=== PATIENT | male | born 1970 | race Caucasian/White ===

== ENCOUNTER → 2018-06-28 | Outpatient (CLI) | payer BC ==
--- NOTE | 2018-06-28 14:02 | KCIC ---
Pre-MRI orbits HISTORY: Previous metal work. Screening for MRI. FINDINGS: There is no evidence of metallic foreign body. Electronically signed by: Melquiades Cason MD (06/28/2018 1:58 PM) [id number]
--- NOTE | 2018-06-28 15:51 | KCIC ---
MR of the left elbow region HISTORY: Left elbow pain, infected bursa was removed on April 12, 2018, continued drainage at the surgical site posteriorly with redness, warmth and tenderness. TECHNIQUE: Routine multiplanar sequences are obtained. FINDINGS: There is moderate motion degradation. The triceps tendon demonstrates a complete or near complete rupture or detachment from the olecranon with a complex fluid collection extending from the tendon to the olecranon and wrapping around the posterior olecranon. This collection in total measures 6 cm cephalocaudal. Above the olecranon this collection measures 3.4 cm wide by 1.7 cm AP. Marrow edema of moderate intensity in the underlying olecranon with loss of fatty marrow on T1-weighted images. There is some separate slightly more disorganized fluid in the subcutaneous tissues located lateral to this. Mild edema within the distal triceps muscle. No significant elbow joint effusion. Biceps and brachialis tendons are intact. The medial and lateral collateral structures are grossly intact. Ulnar nerve appears unremarkable IMPRESSION: 1. Complete or near complete rupture or detachment of the triceps tendon from the olecranon. 2. Complex fluid collection or abscess within this gap, and wrapping around the posterior olecranon. 3. Abnormal marrow replacement of the olecranon process, compatible with osteomyelitis. Electronically signed by: Melquiades Cason MD (06/28/2018 3:47 PM) [id number]
== END | disposition home or self-care (01) ==
LOC: KCIC MRI 12:40
PROVIDERS: ATTEND Orthopaedic Surgery
DX: Z01.00 Encounter for examination of eyes and vision without abnormal findings (principal); R60.0 Localized edema
CPT/HCPCS: 70030; 73221